=== PATIENT | female | born 1980 | race Caucasian/White ===

== ENCOUNTER 2022-08-21 13:24 | Emergency (ER) | payer MEDICARE ==
[~2022-08-21] VITALS: Ht 149.9 cm; Wt 67.1 kg
[2022-08-21 13:40] VITALS: O2SAT 97
== END 2022-08-21 13:58 | disposition home or self-care (01) ==
LOC: ER 13:45
DX: K13.70 Unspecified lesions of oral mucosa (principal); K21.9 Gastro-esophageal reflux disease without esophagitis; M41.9 Scoliosis, unspecified; Z87.891 Personal history of nicotine dependence
CPT/HCPCS: 99282